=== PATIENT | female | born 1945 | race Caucasian/White ===

== ENCOUNTER → 2017-02-21 | Outpatient (CLI) | payer BC ==
[~2017-02-21] MED LIST: COREG12.5 MG PO; PRIL40 PO
== END ==
LOC: MC.RAD 13:39
DX: Z12.31 Encounter for screening mammogram for malignant neoplasm of breast (principal)

== ENCOUNTER 2017-02-23 06:30 | Day surgery (SDC) | payer BC ==
[~2017-02-23] VITALS: Ht 165.1 cm; Wt 100.9 kg
[2017-02-23 07:05] VITALS: BP 137/83; PULSE 70; TEMP 97.8
[2017-02-23] MEDS ORDERED: PRIL40 PO (07:07)
[2017-02-23] MEDS ORDERED: COREG12.5 MG PO (07:08)
[2017-02-23 07:55] VITALS: BP 148/76; PULSE 73; TEMP 98.3
[2017-02-23 08:00] VITALS: BP 135/82; PULSE 69
[2017-02-23 08:15] VITALS: BP 125/67; PULSE 63
== END 2017-02-23 08:35 | disposition home or self-care (01) ==
LOC: SDCO 06:30
DX: Z12.11 Encounter for screening for malignant neoplasm of colon (principal); D12.2 Benign neoplasm of ascending colon; I10 Essential (primary) hypertension; K21.9 Gastro-esophageal reflux disease without esophagitis; Z86.010 Personal history of colon polyps
CPT/HCPCS: J2250; J2405; J3010; J7030

== ENCOUNTER → 2018-03-01 | Outpatient (CLI) | payer BC | LOC: COL.VAS 13:45 | DX: R22.42 Localized swelling, mass and lump, left lower limb (principal) ==

== ENCOUNTER → 2018-03-27 | Outpatient (CLI) | payer BC | LOC: MC.RAD 08:20 | DX: Z12.31 Encounter for screening mammogram for malignant neoplasm of breast (principal) ==

== ENCOUNTER → 2019-12-30 | Outpatient (CLI) | payer BC | LOC: MC.RAD 13:43 | DX: Z12.31 Encounter for screening mammogram for malignant neoplasm of breast (principal); N64.4 Mastodynia; Z98.82 Breast implant status | CPT/HCPCS: G0279 ==